=== PATIENT | female | born 1935 | race Caucasian/White ===

== ENCOUNTER 2017-02-04 06:29 | Emergency (ER) | payer MEDICARE ==
[2017-02-04] MEDS ORDERED: SODIUM CHLORIDE 0.9% 1,000 ML ONE (07:16)
[2017-02-04] MEDS ORDERED: MORPHINE SULFATE 4 MG/ML SYRINGE ONE (07:16)
[2017-02-04] MEDS ORDERED: ONDANSETRON 4 MG/2ML 2 ML VIAL ONE ×2 (07:16→08:20)
[2017-02-04 07:47] LABS: ABSOLUTE NEUTROPHIL COUNT 7.2 K/mm3 (1.8-7.7); BASO # 0.1 K/mm3 (0.0-0.2); BASO % 0.6 % (0.2-1.0); EOS # 0.2 (0.0-0.5); EOS % 2.1 % (0.9-2.9); HEMATOCRIT 42.7 % (37.0-47.0); HEMOGLOBIN 13.9 gm/l (12.0-16.0); IMM NEUT% 0.4 % (0-1); LYMPH # 1.1 (1.0-4.8); LYMPH % 11.8 % (15-45); MEAN CELL VOLUME 88.2 fl (81.0-99.0); MEAN CORPUSCULAR HEMOGLOBIN 28.7 pg (27.0-31.0); MEAN CORPUSCULAR HGB CONC 32.6 g/dl (33.0-37.0); MEAN PLATELET VOLUME 9.8 fl (7.4-10.4); MONO # 0.5 (0.0-0.8); MONO % 5.6 % (4-12); NEUT % 79.5 % (43-75); PLATELET COUNT 229 K/mm3 (130-400); RED CELL DISTRIBUTION WIDTH 12.8 % (11.5-14.5)
--- NOTE | 2017-02-04 08:00 | CT ---
HEAD CT WITHOUT CONTRAST HISTORY: Headache. No intravenous contrast administered. Contiguous axial images acquired from skull base to vertex. COMPARISON:None. BRAIN VOLUME:Grossly unremarkable for patient age. VENTRICULAR SIZE:No gross ventriculomegaly. FOCAL MASS EFFECT: No gross mass effect. Note is made of tortuous, ectatic intracranial vasculature with a high riding quantification. ACUTE INTRACRANIAL HEMORRHAGE:None. CALVARIUM: Grossly intact. VISIBLE PARANASAL SINUSES AND MASTOID AIR CELLS: Evidence of prior right-sided mastoidectomy. Paranasal sinuses grossly clear. Incidental note of temporomandibular joint degeneration. IMPRESSION: 1. Tortuous, ectatic intracranial vasculature; the possibility of aneurysm formation is not excluded, consider intracranial CTA assessment. 2. No gross mass effect, ventriculomegaly, or acute intracranial hemorrhage. 3. Evidence of prior right-sided mastoidectomy. Results were electronically transmitted to the electronic medical record at 02/04/2017 at 0756 hours.
[2017-02-04 08:04] LABS: SPECIFIC GRAVITY 1.015 (1.001-1.030); URINE APPEARANCE CLEAR; URINE BILIRUBIN NEGATIVE (NEGATIVE); URINE BLOOD NEGATIVE (NEGATIVE); URINE COLOR YELLOW; URINE GLUCOSE (UA) NEGATIVE (NEGATIVE); URINE LEUKOCYTE ESTERASE TRACE (NEGATIVE); URINE NITRITE NEGATIVE (NEGATIVE); URINE PROTEIN NEGATIVE (NEGATIVE); URINE UROBILINOGEN NORMAL (0-1 mg/dl)
[2017-02-04 08:05] LABS: ALB/GLOB RATIO 1.2 (>1.0); ALBUMIN 4.1 gm/dL (3.5-5.7); CALCIUM 9.4 mg/dL (8.6-10.3)
[2017-02-04 08:07] LABS: C-REACTIVE PROTEIN 1.1 mg/dl (<1.0)
[2017-02-04 08:20] LABS: URINE BACTERIA RARE; URINE EPITHELIAL CELLS 0-1 /hpf; URINE RBC 0-1 /hpf; URINE WBC 0-1 /hpf
[2017-02-04] MEDS ORDERED: KETOROLAC TROMETHAMINE 30 MG/ML 1 ML VIAL ONE (08:20)
== END 2017-02-04 09:25 | disposition home or self-care (01) ==
LOC: ED 06:29
DX: R51 Headache (principal)
CPT/HCPCS: 86141; 85025; 80053; 85651; 81001; 70450; 96375 ×2; 96376; 99284; 96374; 99283; J2270; J1885; J2405 ×2; J7030